=== PATIENT | male | born 1985 | race Hispanic/Latino ===

== ENCOUNTER 2016-09-05 23:59 | Emergency (ER) | payer OTHER ==
[~2016-09-05] VITALS: Ht 177.8 cm; Wt 136.4 kg
[~2016-09-05 23:59] MED LIST: CETI5TAB28 PO; CYCL5TAB PO; FLUO40CA12 PO; HYDR-3605 PO; HYDR-4003 PO; IBUP800T28 PO; ONDA8TAB10 PO; PROM12.510 PO
[2016-09-06 00:05] VITALS: BP 126/86; PULSE 92; RESP 18; O2SAT 97
[2016-09-06] MEDS ORDERED: Ondansetron 8 mg ODT Tablet PO ONE (01:10)
--- NOTE | 2016-09-06 01:15 | ED.REPORT ---
HPI-General Illness Date of Service Sep 06, 2016 ED Provider: Heriberto Lees MD The patient is a 30 yo morbidly obese male with history of chronic muscle spasm , anxiety/depression, and asthma who presents to the ED with his partner for generalized joint pain and headache s/p GLF 3 days ago. He reports to have a sudden numbness on the left side while lifting some box at home, lost his balance, and fell on his back to the carpet floor. He admits to hitting his head on the floor and lost consciousness for unknown amount of time. He woke up when the dog licked his face. Since the GLF, he has had severe, global joint pain all over his body: neck, back, shoulders, elbows, knees, wrists, ankles. The pain is constant, sharp and rates 9/10 on the pain scale. Patient reports some numbness in the right arm and chronic numbness in bilateral feet. Pain is worse with walking and any movement. Around 1800 today, he developed a severe, generalized headache that feels like "my head is on fire." He also reports nausea and has been vomiting a few time. Other symptoms include photophobia, fatigue, and generalized abdominal pain. His partner denies any change in his speech, mental status, or mood. Patient denies any one-sided weakness, vision change, urinary/bowel incontinence, urinary symptoms, CP, or SOB. Nursing Notes Stated Complaint: JOINT PAIN,VOMITING Chief Complaint: General Complaint Nursing Notes Reviewed: Yes Allergies: Coded Allergies: No Known Allergies (Unverified , 09/06/16) Scheduled Cetirizine (Cetirizine) 5 Mg Tablet 5 MG PO HS Fluoxetine (Prozac) 40 Mg Capsule 40 MG PO DAILY Ondansetron ODT (Ondansetron ODT) 8 Mg Tab.rapdis 8 MG PO QID Scheduled PRN Cyclobenzaprine (Cyclobenzaprine) 5 Mg Tablet 5 MG PO HS PRN PRN Spasm HydrOXYzine HCl (HydrOXYzine HCl) 10 Mg Tablet 10 MG PO TID PRN PRN For Anxiety or Agitation Hydrocodone-Acetaminophen 5-325 mg (Hydrocodone-Acetaminophen 5-325 mg) 1 Each Tablet 1-2 TABLET PO q4-6h PRN PRN For Pain Ondansetron ODT (Ondansetron ODT) 8 Mg Tab.rapdis 4-8 MG PO q4-6h PRN PRN For Nausea Miscellaneous Medications Ibuprofen (Ibuprofen) 800 Mg Tablet 800 MG PO Promethazine (Promethazine) 12.5 Mg Tablet 12.5 MG PO General Time Seen by MD: 00:50 Chief Complaint Headache, Multip medical complaints, Vomiting Hx Obtained From: Patient, Spouse Arrived By: Walk-in Sudden in Onset?: Yes Onset Occurred: 3 days ago Symptom Duration: Since onset Caused by: Accidental Context: Occurred at: Home injury Location: : Abdomen: Ankle left: Ankle right: Arm left: Arm right: Back: Elbow left: Elbow right: Foot left: Foot right: Forearm left: Forearm right: Head: Knee left: Knee right: Shoulder left: Shoulder right: Wrist left: Wrist right Quality: Aching, Painful, Sharp Radiation: : Does not radiate Severity: Current: Pain level 9 out of 10 Severity: Maximum: Pain level 10 out of 10 Associated with: Reports: Abdominal pain, Headache, Joint pain, Loss of consciousness, Nausea, Numb extremities, Vomiting, Weak extremity, Weakness, Denies: Chest pain, Cough, Difficulty breathing, Dizziness, Fever, Pain on walking, Shortness of breath, Vision change Pertinent Negative: Pt denies other symptoms Exacerbated by: Moving affected area, Standing up Pertinent Negative: Exacerbated by nothing Context Related History: Reports Asthma, Reports Depression, Reports Psychiatric history Recent Healthcare: No recent hospitalization Similar Sx Previous: No Past Medical History Past Medical History hx of UTI Anxiety Reports: GERD Past Surgical History Reports: Appendectomy, Cholecystectomy Smoking History Former Smoker Social History moves here from [place], accompanied by his partner Alcohol Use: Denies alcohol use Drug Use: THC Other Social History: Good social support, Local resident Ambulatory Status Independent Review of Systems Full Review of Systems Constitutional: Reports: Fatigue, Weakness - generalized, Denies: Chills, Fever Eyes: Denies: Blurred bilateral, Eye pain bilateral, Visual loss bilateral Respiratory: Denies: Dyspnea on exertion, Shortness of breath, Wheezing Cardiovascular: Denies: Chest pain, Dyspnea on exertion, Palpitations GI: Reports: Abdominal pain, Nausea, Vomiting, Denies: Constipation, Diarrhea, Dysphagia Male: Denies Dysuria, Denies Flank pain, Denies Hematuria, Denies Incontinence Musculoskeletal: Reports: Back pain, Extremity pain, Joint pain, Lumbar pain, Myalgia, Neck pain, Thoracic pain, Denies: Joint swelling Neurologic: Reports: Headache, Numbness, Problem walking, Weakness, Denies: Abnormal movement, Bladder dysfunction, Bowel dysfunction, Change LOC , Confusion, Dizziness, Focal weakness, Unable to speak, Vision change Psychiatric: Reports: Anxiety, Depression, Denies: Change mental status, Confusion, Delusional, Homicidal ideation Complete sys rev & neg: except as marked. Physical Exam Vital Signs Vital Signs Date Time Temp Pulse Resp B/P Pulse Ox O2 Delivery O2 Flow Rate FiO2 09/06/16 03:18 80 16 09/06/16 00:05 37.0 92 18 126/86 97 Room Air Initial VS: Reviewed, Vital signs normal General/Constitutional: Awake, Alert, Well hydrated, Not toxic appearing Behavior: Positive: Tearful Appearance / Presentation: Positive: Obese, morbidly Head / Eyes: Atraumatic, Normocephalic, PERRL, EOMI, No photophobia, Eyelids NL Neck: Atraumatic, No swelling Meningeal Signs / ROM: Positive: Decreased extension, Decreased flexion, Rotation decreased L, Rotation decreased R, Negative: Brudzinski's positive, Kernig's positive, Nuchal rigidity present Neck / Muscle Tenderness: Positive: Midline tenderness high, Midline tenderness low, Midline tenderness mid Trauma - Neck Specific: Positive: Paraspinal tender L, Paraspinal tender R Respiratory / Chest: Atraumatic, Breath sounds NL, Breath sounds = bilat, No respiratory distress, No rales, No rhonchi Cardiovascular: Heart rate NL, Regular rhythm, Heart sounds NL, No gallop, No murmurs, No rubs Abdomen: Atraumatic, Soft, No guarding, No rebound, BS normoactive, No distention Tenderness/Guarding/Rebound: Positive: Tender LLQ... (Moderate), Tender LUQ... (Moderate) Back: Atraumatic, Inspection NL Pain out of portion to exam. Minimal muscle spasm palpated, but patient cringes in pain at light touch of the neck and back. Upper Extremities Generalized tenderness to palpation in bilateral UE. No swelling/erythema/warmth noted anywhere. Lower Extremity / Pelvis / MS: Atraumatic, Inspection NL, No deformity Diffuse tenderness to palpation throughout bilateral LE. Patient complains of pain at light touch to the knee joints. However, no deformity or joint effusion noted. Neurologic: Oriented X3, No motor deficits, CN II - XII intact, Memory NL, Gait NL Sensory Deficit: Positive: Lower extremity bilat Patient complains of elbow pain with [id number] test. Speech is slow, but normal per his partner. Psychiatric: Not homicidal, No hallucinations Abnormal Mood/Affect: Positive: Depressed, Flat affect, Labile Poor judgement and insight Interpretation & Diagnostics Lab Results Interpretation Test 09/06/16 01:10 Hold Urine Received (Received) Lab Results Interpretation: Urine dip negative Drug Screen / Level Interp Urine positive THC CT Head Interpretation Study: Head CT no contrast Interpretation / Wet Read by: Interpret - Radiologist NL CT Head Findings: No acute disease, Normal brain Re-Eval/Medical Decision Med Decision/Clinical Course 30 yo morbidly obese male with history of chronic muscle spasm, anxiety/ depression, and asthma who presents to the ED for global body ache and headache s/p GLF 3 days ago. He admits to head injury and loss of consciousness for unknown amount of time. He also develops nausea and vomiting prior to arrival to the ED. His home Cyclobenzaprine and Ibuprofen did not work. On exam, patient has severe generalized body pain and very tender to palpation everywhere. Although his neurological exam was benign, given his head injury and headache severity, we ordered a head CT scan without contrast to rule out any intracranial hemorrhage. This was negative. His urine tox screen is only positive for THC. We also review his previous ER visits, which was a year ago, and did a [employer] check on him. The last time he received Percocet was in 04/2016. Patient received a dose of Toradol 30mg IM and Zofran 8mg SL, which did not help his symptoms at all. He then received a REEVES cocktail of Compazine+Benadryl+ Decadron with 1L of NS and his symptoms improved. Patient was offered a prescription for Zofran at discharge, but he declined. Patient was discharged in stable condition. Source of Hx: Friend Time of Eval: 01:55 Patient Status: Condition unchanged, No relief Re-Evaluation/Progress Note: Patient complains of persistent REEVES and joint pain that did not improve with Toradol. Will start IV line and give him the REEVES cocktail of Compazine+Benadryl+Dexamethasone. Time of Eval: 02:55 Patient Status: Condition improved Re-Evaluation/Progress Note: Patient reports improvement of his symptoms with the headache cocktail and 1L of NS. He requests to be discharged and will follow up with his PCP this morning as scheduled. Counseled Regarding: Diagnosis, Lab results, Need for follow-up, When/why to return to ED Discharge & Departure Primary Impression: Headache Headache type: post-traumatic Headache chronicity pattern: acute headache Intractability: not intractable Qualified Code: G44.319 - Acute post- traumatic headache, not intractable Additional Impressions: Joint pain Laterality: bilateral Fall from ground level Disposition: Home Discharge Condition All VS Reviewed: Yes Condition: Stable Patient Instructions: Acute Headache (ED) Additional Instructions: Because of your history of head injury and severe headache, a head CT was ordered to rule out in intracranial bleed. The head CT is normal with no sign of bleeding. It is likely that your headache is due to post-concussion syndrome. You might experience off-and-on headache, but this should get better. The generalized joint pain could be muscle soreness or bone bruise from the fall. The treatment for this will be conservative, which include Ibuprofen/ Tylenol as needed. You can apply apply ice/heat to the joints. The Cyclobenzaprine, which you have at home, should help with the neck and back spasm. Please follow up with your primary care doctor as scheduled. Return to the clinic if you notice any change in your mental status, slurred speech, worsening headache, or one-sided weakness. Referrals: OTHER,PHYSICIAN (PCP) Attending Statement The patient was seen and examined together with Dr. Luciana Small and I agree with the history, exam and plan as outlined in the note above. Mercy Small DO Sep 06, 2016 01:15 Heriberto Lees MD Sep 06, 2016 06:29
[2016-09-06] MEDS ORDERED: 0.9% Sodium Chloride 1,000 ML IV ONE (02:01)
[2016-09-06] MEDS ORDERED: ProchlorPERazine 5 mg/mL 2 mL Inj IVPUSH ONE (02:05)
[2016-09-06] MEDS ORDERED: Dexamethasone 10 mg/mL Inj IVPUSH ONE (02:05)
[2016-09-06 03:18] VITALS: PULSE 80; RESP 16
--- NOTE | 2016-09-06 08:29 | DRSVH ---
PROCEDURE: CT BRAIN WITHOUT CONTRAST ([id number]) INDICATIONS: Headache s/p GLF with LOC TECHNIQUE: Noncontrast 4.5 mm thick angled axial sections acquired from the foramen magnum to the vertex, with c oronal reformats. COMPARISON: None. FINDINGS: Image quality: Excellent. CSF spaces: Basal cisterns are patent. No extra-axial fluid collections. Ventricles are normal in size and shape. Brain: No midline shift. No intracranial masses or hemorrhage. Hudson-white matter interface is norm al. Skull and face: Calvarium and visualized facial bones are intact, without suspicious lesions. Sinuses: Visualized sinuses and mastoids are clear. IMPRESSION: No acute intracranial disease process. Dictated by: Radha Shaffer MD, PhD on 09/06/2016 at 8:26 Approved by: Radha Shaffer MD, PhD on 09/06/2016 at 8:27
== END 2016-09-06 03:18 | disposition home or self-care (01) ==
LOC: SED 23:59
DX: G44.319 Acute post-traumatic headache, not intractable (principal); W18.30XA Fall on same level, unspecified, initial encounter; Y93.89 Activity, other specified; Y92.009 Unspecified place in unspecified non-institutional (private) residence as the place of occurrence of the external cause; Y99.8 Other external cause status; R20.0 Anesthesia of skin; R11.2 Nausea with vomiting, unspecified; R10.84 Generalized abdominal pain; R53.83 Other fatigue; H53.149 Visual discomfort, unspecified; E66.01 Morbid (severe) obesity due to excess calories; F41.9 Anxiety disorder, unspecified; F32.9 Major depressive disorder, single episode, unspecified; J45.909 Unspecified asthma, uncomplicated; K21.9 Gastro-esophageal reflux disease without esophagitis; Z87.440 Personal history of urinary (tract) infections; Z87.891 Personal history of nicotine dependence; Z68.41 Body mass index [BMI] 40.0-44.9, adult
CPT/HCPCS: 70450; 96361; 96372; 96374; 96375; 99285; J0780; J1100; J1200; J1885; J7030